=== PATIENT | female | born 2000 | race Two or more races ===

== ENCOUNTER 2021-07-16 17:39 | Emergency (ER) | payer OTHER ==
[~2021-07-16] VITALS: Ht 162.6 cm; Wt 52.3 kg
[2021-07-16 17:54] VITALS: BP 129/86
== END 2021-07-16 20:49 | disposition left against medical advice (07) ==
LOC: ER 17:40
DX: S61.211A Laceration without foreign body of left index finger without damage to nail, initial encounter (principal); Z53.21 Procedure and treatment not carried out due to patient leaving prior to being seen by health care provider; X58.XXXA Exposure to other specified factors, initial encounter; Y93.89 Activity, other specified; Y92.89 Other specified places as the place of occurrence of the external cause; Y99.8 Other external cause status